=== PATIENT | female | born 1960 | race Caucasian/White ===

== ENCOUNTER 2019-01-16 06:02 | Inpatient (IN) ==
[2019-01-16] MEDS ORDERED: CeFAZolin Syr 2,000MG/20 ML 2,000 MG/20 ML SYRINGE IVPB ONE (06:18)
[2019-01-16] MEDS ORDERED: Albuterol 2.5 MG/3 ML NEBULIZER IH ONE (06:18)
[2019-01-16] MEDS: Ringers Solution, Lactated 1,000 ML IVC SCH ×4 (06:31→17:35)
[2019-01-16] MEDS ORDERED: *HR* Remifentanil 1 MG VIAL IVP ONE (06:47)
[2019-01-16] MEDS ORDERED: *HR* FentaNYL (PF) 100 MCG/2 ML VIAL ONE (06:47)
[2019-01-16] MEDS ORDERED: *HR* Midazolam HCl 2 MG/2 ML VIAL ONE (06:47)
[2019-01-16] MEDS ORDERED: *HR* Propofol 200 MG/20 ML VIAL IVP ONE (06:47)
[2019-01-16] MEDS ORDERED: Ondansetron 4 MG/2 ML VIAL ONE ×2 (06:49→09:53)
[2019-01-16] MEDS ORDERED: Lidocaine -MPF 4% 5 ML AMPUL ONE (06:49)
[2019-01-16] MEDS ORDERED: *HR* Rocuronium Bromide 50 MG/5 ML VIAL ONE (06:49)
[2019-01-16] MEDS ORDERED: Lidocaine -MPF 2% 2 ML VIAL ONE (06:49)
[2019-01-16] MEDS ORDERED: *HR* Atropine Sulfate 8 MG/20 ML VIAL IVP ONE (06:49)
[2019-01-16] MEDS ORDERED: *HR* Succinylcholine 200 MG/10 ML VIAL IVP ONE (06:49)
[2019-01-16] MEDS ORDERED: *HR* Phenylephrine 10 MG/ML VIAL ONE (06:55)
--- NOTE | 2019-01-16 07:19 | Anesthesia Evaluation PreOp ---
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 Other Medical History: GERD Anesthesia History: No Prior Anesthetic Complications, Past Anesthesia Alcohol Use: none Drug use: none Medications and Allergies Allergy/AdvReac Type Severity Reaction Status Date / Time No Known Allergies Allergy Verified 01/06/19 11:25 - Meds/Allergy Pre-op Review Medications Reviewed: Yes Allergies Reviewed: Yes Beta Blockers on Current Med List: No Anesthesia Results - Labs Laboratory Tests 01/06/19 01/06/19 01/06/19 11:45 11:45 11:45 WBC 7.3 Hgb 13.5 Hct 40.9 Plt Count 263 PT 10.6 INR 0.9 APTT 31.3 Sodium 139 Potassium 4.3 BUN 19 Creatinine 0.90 Anesthesia Exam O2 Sat Height 1.65 m Height 1.65 m Weight 65.317 kg Weight 65.317 kg O2 Sat by Pulse Oximetry 93 Vital Signs Temp Pulse Resp BP Pulse Ox 98.6 F 66 18 110/74 93 01/16/19 07:15 01/16/19 07:15 01/16/19 07:15 01/16/19 07:15 01/16/19 07:15 Height: 5'5'' Weight: 144 lbs NPO (# of Hours): 8 Pain Scale: 0 Pain Scale Used: Numeric (1 - 10) - HEENT Pupil (Motor): EOMI Mallampati: II Teeth: Edentulous Oral Opening: Greater than 3 - RAIL CAR MECHANIC LOC: Oriented RAIL CAR MECHANIC Motor: Normal RUE, Normal LUE, Normal RLE, Normal Face, Deficit LLE RAIL CAR MECH[employer]IC Sensory: Normal: RUE, LUE, RLE, Face, Deficit: LLE - Cardiac Rhythm: Regular Murmur: None - Pulmonary Breath Sounds: bilateral Clear Respiratory Effort: Symmetrical ([id number]) Anesthesia Assess/Plan ASA Score: 2 Level of consciousness: Cooperative, Oriented, Tranquil Anesthetic Plan: General Monitoring Plan: Standard Monitors Recovery Plan: PACU
--- NOTE | 2019-01-16 07:32 | History & Physical Report ---
Date of Encounter: 01/16/19 Time of Encounter: 07:31 24 Hour HP Update - Instructions Instructions: If the History and Physical is less than 30 days old and was completed prior to A.M. admission and or procedure and has NOT been updated on calendar day of procedure please complete this update prior to performing procedure. - Update Patient reports changes in Medical Condition: No Changes in examination, assessment, or condition: No Changes in Medication: No Preop tests/diagnostics Reviewed: Yes Pre-Op MRSA Screen: Negative Surgery Remains Indicated: Yes Consent for Planned Operative Procedure(s) Verified: Yes - Pre-Operative Checklist Preoperative Checklist Indicated: No Prophylactic Antibiotic Ordered: Yes Home Medications Include Beta Anibal: No Beta Anibal Taken Today (Day of Surgery): No Beta Anibal Taken Yesterday (Day Prior to Surgery): No Is VTE Prophylaxis Indicated?: Yes
[2019-01-16] MEDS ORDERED: *HR* OxyCODONE Immed Rel 5 MG TABLET PO PRN (07:34)
[2019-01-16] MEDS ORDERED: Acetaminophen IV 1,000 MG/100 ML INFUS..BTL ONE (07:40)
[2019-01-16] MEDS ORDERED: Bacitracin 50,000 UNIT, Polymyxin B Sulfate 500,000 UNIT, Sodium Chloride IRRigation 1,... IR ONE (07:45)
[2019-01-16] MEDS ORDERED: Dexamethasone 4 MG/ML VIAL ONE (08:02)
[2019-01-16] MEDS ORDERED: *HR* HYDROMORPHONE 2 MG/ML VIAL ONE (09:50)
[2019-01-16] MEDS ORDERED: Ketorolac 30 MG/ML VIAL ONE (09:52)
--- NOTE | 2019-01-16 10:23 | Orthopedic Operative Note ---
Date of procedure: 01/16/19 Pre-op diagnosis: Synovial facet cyst, lumbar stenosis, lumbar radiculopathy Post-op diagnosis: same Operation/Findings: Posterior lumbar interbody fusion L5-S1: The patient successfully underwent general endotracheal anesthesia. The patient was given antibiotics prior to the start of the procedure. Compression boots and stockings were used for deep vein thrombosis prophylaxis. A Montgomery catheter was placed. Leads for neuro monitoring were placed on the upper and lower extremities. This included the cranium. The neuro monitoring personnel confirmed there were satisfactory readings prior to the start of the procedure. The patient was turned prone on the Sander table. The back was prepped and draped in the usual sterile fashion. An incision was was marked and centered over the involved L5-S1 levels in the mid line. The incision was deepened through the lumbar fascia. Bovie cautery and Sharma elevators were used to reflect the paraspinal musculature at the lateral extent of the transverse processes of the involved L5 and S1 levels. Trang clamps were placed over the L5 spinous process. An intraoperative lateral fluorograph was obtained. A conversation was held between the surgeon and radiologist and both confirmed we had the correct operative levels. We then placed pedicle screws in standard fashion with the aid of fluoroscopy and anatomic landmarks. Briefly a starter awl was used. A gearshift was subsequently used to enter the pilot boat operator hole via a transpedicular route into the vertebral body. The pilot boat operator hole was tapped with an undersized instrument, and subsequently two 6.5 x 40 mm pedicle screws were placed on the left side at the indicated L5-S1 level. The screws were tested with the aid of the neurologic monitoring staff via pedicle screw stimulation. All readings suggested there was no significant cortical wall breech. The screws were also evaluated fluoro- graphically and appeared to be in satisfactory position. We then turned our attention to the decompression portion of the procedure. We removed the supraspinous and interspinous ligaments and subsequently the insertion of the ligamentum flavum on the undersurface of the proximal L5 lamina was dislodged with a curette. We then removed the ligamentum flavum as well as undercut the L5-S1 facets at this level to decompress the lateral recesses. We also performed a L5 laminectomy. After the decompression, which was over and above that which was required to place the interbody graft, the foramen and traversing roots at this L5-S1 level were found to be free and patent. We also took part of the medial facets in order to aid in the decompression. We then protected the neural elements including the thecal sac and traversing nerve root on the left with a dural retractor. We made an annulotomy into the L5-S1 disc space and then removed entire disc material using Pituitary instruments. We trialed various size grafts after the endplates were prepared for graft insertion. A 10 x 26 enter body graft fit well within the L5-S1 disc space. We obtained some bone from the left posterior superior iliac spine through us a separate incision and combined with this with the bone which we had saved from the laminectomy portion of the procedure. This autograft bone was first placed in the anterior portion of the L5-S1 disc space and additional bone was placed within the interbody graft spacer. We then placed the interbody graft spacer obliquely across the L5-S1 disc space towards the midline while protecting the neural elements with a root retractor. When the graft was found to be in satisfactory position the progressive care unit registered nurse was removed. We then copiously irrigated the wound. We then decorticated the L5 transverse processes as well as the L5-S1 facet joints of the involved levels as well as the proximal portion of the sacrum to aid in the posterolateral fusion. We placed autograft bone in the lateral gutters over these regions. We then placed rods within the screw heads of the involved L5-S1 levels and first locked the distal screws and then subsequently locked the proximal screws. We then closed the wound in layers with 1 Vicryl for the fascia, 2-0 Vicryl. Subcutaneous tissue, and Dermabond was used for skin closure. Sterile dressings were placed over the wound. The patient was turned supine on a hospital bed and extubated. All sponge instruments and needle counts were correct at the end of the procedure. The patient tolerated the procedure well without complications. Anesthesia: GETA Surgeon: Sathya Verduzco Jr Was there an kindergarten assistant present: No Estimated blood loss (cc): 100 Specimen: None Condition: stable Disposition: PACU
[2019-01-16] MEDS: *HR* HYDROmorphone (PF) 1 MG/ML SYRINGE IVP PRN ×2 (10:35→10:40)
--- NOTE | 2019-01-16 10:57 | Anesthesia Evaluation Post Op ---
Date of Encounter: 01/16/19 Time of Encounter: 10:57 - Vital Signs Vital Signs: Vital Signs/O2 Sat, Most Current Temp Pulse Resp BP Pulse Ox 98.0 F 98 12 113/73 93 01/16/19 10:28 01/16/19 10:48 01/16/19 10:48 01/16/19 10:48 01/16/19 10:48 - Lungs Lungs: Clear Ascult./Percussion - Airway Airway: Non-obstructed - Cardiovascular Regular Rate - Mental Status Mental Status: Alert & Oriented, Answers Appropriately - Pain Pain Scale: 5 Pain Scale used: Numeric (1 - 10) - Nausea Vomiting Nausea Vomiting: Not Present - Hydration Hydration: Ice chips, Montgomery catheter - Discharge PostOp Status: Transfer Patient to floor
[2019-01-16] MEDS ORDERED: Naloxone 0.4 MG/ML INJ IVP PRN (11:08)
[2019-01-16] MEDS ORDERED: Ondansetron 4 MG/2 ML VIAL IVP PRN ×2 (11:08→16:39)
[2019-01-16] MEDS: *HR* HYDROcodone/Acet 5/325 mg TABLET PO PRN (13:21)
[2019-01-16] MEDS: *HR* OxyCODONE Immed Rel 5 MG TABLET PO PRN (17:27)
[2019-01-16] MEDS ORDERED: *HR* Promethazine 25 MG/ML VIAL IVP PRN (18:29)
[2019-01-17] MEDS: Ringers Solution, Lactated 1,000 ML IVC SCH ×2 (00:47→04:12)
[2019-01-17] MEDS: *HR* HYDROcodone/Acet 5/325 mg TABLET PO PRN ×3 (03:21→18:39)
[2019-01-17] MEDS: Gabapentin 300 MG CAPSULE PO PRN (04:16)
[2019-01-17] MEDS: *HR* OxyCODONE Immed Rel 5 MG TABLET PO PRN ×4 (07:48→20:42)
--- NOTE | 2019-01-17 09:01 | Orthopedics Progress Note ---
Date of Encounter: 01/17/19 Time of Encounter: 09:00 - Assessment and Plan (1) Synovial cyst of lumbar facet joint Current Visit: Yes Status: Chronic (2) Lumbar stenosis Current Visit: Yes Status: Chronic Qualifiers: Neurogenic claudication status: unspecified Qualified Code(s): M48.061 - Spinal stenosis, lumbar region without neurogenic claudication (3) Lumbar radiculopathy Current Visit: Yes Status: Chronic (4) Status post lumbar spinal fusion Current Visit: Yes Status: Acute Subjective Principal diagnosis: s/p PLIF Interval history: Date of procedure: 01/16/19 Pre-op diagnosis: Synovial facet cyst, lumbar stenosis, lumbar radiculopathy Post-op diagnosis: same Operation/Findings: Posterior lumbar interbody fusion L5-S1: The patient is c/o preop and continued constipation. States leg pain is now intermittent whereas preop it was constant. Afebrile vital signs are stable. Dressing is clean dry and intact. LSO in proper placement. Neurovascularly intact with regard to bilateral lower extremities. Fires all upper and lower extremity motor groups. Assessment :stable. Plan mobilize ,continue analgesics, discharge planning. Add muscle relaxer and miralax Objective Vital signs: Vital Signs Temp Pulse Resp BP Pulse Ox 01/17/19 06:45 98.3 F 68 18 103/66 93 01/17/19 03:50 98.3 F 64 14 113/69 93 01/16/19 23:26 98.6 F 64 14 92/58 93 01/16/19 23:00 93 01/16/19 19:44 98.5 F 75 14 96/60 94 01/16/19 17:25 106/73 01/16/19 14:10 97.6 F 87 17 97/64 98 01/16/19 13:10 97.7 F 73 15 106/73 97 01/16/19 12:10 97.9 F 67 16 107/70 97 01/16/19 11:40 97.0 F L 86 17 110/63 97 01/16/19 11:10 97.6 F 76 16 116/76 97 01/16/19 10:58 98.4 F 84 14 107/70 96 01/16/19 10:48 98 12 113/73 93 01/16/19 10:38 96 14 111/75 96 01/16/19 10:28 98.0 F 89 14 110/75 98 Intake and Output 01/16/19 01/17/19 01/17/19 23:59 07:59 15:59 Intake Total 100 / 100 1100 / 1100 Output Total 425 / 425 1200 / 1200 Balance -325 / -325 -100 / -100 Intake: IV Fluids 1000 / 1000 Lactated Ringers 1,000 ML @ 100 1000 / 1000 mls/hr IVC .Q10H HEATHER Rx#: [id number] Oral 100 / 100 100 / 100 Output: Catheter 425 / 425 1200 / 1200 Other: Weight 73.56 kg Patient Weight 01/17/19 23:59 Weight 73.56 kg Consult Discharge Plan - Plan Referrals: NONE,PCP [Primary Care Provider] -
[2019-01-17] MEDS: Acetaminophen 325 MG TABLET PO PRN (18:26)
[2019-01-18] MEDS: Gabapentin 300 MG CAPSULE PO PRN (01:42)
[2019-01-18] MEDS: Acetaminophen 325 MG TABLET PO PRN (01:42)
[2019-01-18] MEDS: *HR* OxyCODONE Immed Rel 5 MG TABLET PO PRN ×3 (02:59→15:06)
[2019-01-18] MEDS: *HR* HYDROcodone/Acet 5/325 mg TABLET PO PRN ×2 (11:53→18:36)
[2019-01-19] MEDS: *HR* OxyCODONE Immed Rel 5 MG TABLET PO PRN ×3 (02:09→11:09)
[2019-01-19] MEDS: Acetaminophen 325 MG TABLET PO PRN (03:26)
[2019-01-19 11:46] VITALS: BP 107/63
--- NOTE | 2019-01-19 12:46 | Orthopedics Progress Note ---
Date of Encounter: 01/18/19 Time of Encounter: 14:00 - Assessment and Plan (1) Synovial cyst of lumbar facet joint Current Visit: Yes Status: Chronic (2) Lumbar stenosis Current Visit: Yes Status: Chronic Qualifiers: Neurogenic claudication status: unspecified Qualified Code(s): M48.061 - Spinal stenosis, lumbar region without neurogenic claudication (3) Lumbar radiculopathy Current Visit: Yes Status: Chronic (4) Status post lumbar spinal fusion Current Visit: Yes Status: Acute Subjective Principal diagnosis: s/p PLIF Interval history: Date of procedure: 01/16/19 Pre-op diagnosis: Synovial facet cyst, lumbar stenosis, lumbar radiculopathy Post-op diagnosis: same Operation/Findings: Posterior lumbar interbody fusion L5-S1: The patient is c/o preop and continued constipation. States leg pain is now intermittent whereas preop it was constant. Afebrile vital signs are stable. Dressing is clean dry and intact. LSO in proper placement. Neurovascularly intact with regard to bilateral lower extremities. Fires all upper and lower extremity motor groups. Assessment :stable. Plan mobilize ,continue analgesics, discharge planning. Add muscle relaxer and miralax Objective Vital signs: Vital Signs Temp Pulse Resp BP Pulse Ox 01/19/19 10:55 98.5 F 83 16 107/63 95 01/19/19 06:30 98.9 F 86 16 98/53 94 01/19/19 02:21 99.5 F 83 16 96/59 92 01/18/19 22:55 98.6 F 76 16 92/61 93 01/18/19 20:59 99.6 F 93 109/72 92 01/18/19 19:49 100.2 F H 102 16 91/56 91 01/18/19 16:45 98.5 F 79 16 104/68 96 Intake and Output 01/18/19 01/19/19 01/19/19 23:59 07:59 15:59 Output Total 350 / 350 Balance -350 / -350 Output: Urine 350 / 350 Other: # Voids 2 1 Consult Discharge Plan - Plan Referrals: NONE,PCP [Primary Care Provider] -
--- NOTE | 2019-01-19 12:50 | Discharge Summary ---
<Aria Arce - Last Filed: 01/19/19 12:46> Orders not resulted at time of discharge: Pending orders 01/16/19 08:27 XR fluoroscopy <1 hr [XR] Routine Date of Encounter: 01/19/19 - Discharge Diagnosis (1) Synovial cyst of lumbar facet joint Status: Chronic (2) Lumbar stenosis Status: Chronic Qualifiers: Neurogenic claudication status: unspecified Qualified Code(s): M48.061 - Spinal stenosis, lumbar region without neurogenic claudication (3) Lumbar radiculopathy Status: Chronic (4) Status post lumbar spinal fusion Status: Acute - Hospital Course Hospital course: Ms. Cabrera is a 58 year old female Time spent discussing smoking cessation with patient: 3 to 10 minutes (Patient adamantly declines smoking cessation counseling. Strongly encouraged patient to use IS 10x every hour and keep close follow up with her PCP.) - Time Spent with Patient Total time spent providing and/or coordinating discharge services: - Discharge Medications Prescriptions: New RX: OxyCODONE Immed Rel [Roxicodone 5 MG] 5 mg PO Q6HR PRN 7 Days #28 tablet PRN Reason: Severe Pain RX: Docusate Sodium [Colace] 100 mg PO BID 5 Days #10 capsule Continue RX: Gabapentin [Neurontin] 300 mg PO TID PRN PRN Reason: Mild To Moderate Pain Discontinued HYDROcodone/Acet 7.5/325 mg [[place] 7.5-325 mg] 1 tab PO Q6H PRN PRN Reason: Mild To Moderate Pain Home Medications: RX: Gabapentin [Neurontin] 300 mg PO TID PRN 01/16/19 [History] RX: Docusate Sodium [Colace] 100 mg PO BID 5 Days #10 capsule 01/19/19 [Rx] RX: OxyCODONE Immed Rel [Roxicodone 5 MG] 5 mg PO Q6HR PRN 7 Days #28 tablet 01/19/19 [Rx] Allergies/Adverse Reactions: 3 Allergy/AdvReac Type Severity Reaction Status Date / Time No Known Allergies Allergy Verified 01/16/19 07:29 Date of admission: 01/16/19 11:28 Primary care physician: PCP NONE Consults: 01/16/19 11:08 Consult to Physical Therapy [CONS] Routine Comment: Evaluate, develop and implement POC Reason for Consult: Postoperative rehabilitation Does patient have active BEDREST order?: No Is patient medically & hemodynamically stable?: Yes Patient assessed for mobility or mobilized this visit?: No Consult to Spine Navigator [CONS] [CONS] Routine - Impressions ITS Impressions Lumbar Spine X-Ray 01/16/19 08:27 IMPRESSION: Intraoperative radiograph demonstrates successful anterior and posterior fusion with probable decompressive laminectomy at the L5-S1 level. D/ / 01/16/2019 11:21:44 Bipin Elias MD / lgray Interpreting Provider: Bipin Elias MD Lumbar Spine X-Ray 01/19/19 08:23 IMPRESSION: No acute abnormalities. Interval surgical intervention to the lumbosacral junction as above. No evidence for hardware complication. Stable multilevel degenerative changes. Stable grade 1 spondylolisthesis at L3-4 likely relating to the degenerative changes. D/ / 01/19/2019 10:09:22 Cj Landis MD / bcarter Interpreting Provider: Cj Landis MD - Patient Status Disposition: Home Health Service Condition: Good Functional capacity at discharge: uses cane/walker Overall status at discharge: patient is progressing back to baseline - Discharge Instructions Follow Up With: NONE,PCP [Primary Care Provider] - - Diet and Activity Activity: as per physical therapy Diet: advance to your usual diet <Sathya Verduzco Jr - Last Filed: 01/19/19 13:27> - NOTES TO OUTPATIENT PROVIDER Notes to Outpatient Provider: Follow up in 2 weeks in [facility] Orders not resulted at time of discharge: Pending orders 01/16/19 08:27 XR fluoroscopy <1 hr [XR] Routine Date of Encounter: 01/19/19 Time of Encounter: 13:26 - Hospital Course Hospital course: Ms. Cabrera is a 58 year old female The patient had an uneventful postoperative course. Progressed from intravenous analgesic needs to oral analgesic needs only. Remained neurovascularly intact and mobilized satisfactorily. All intrao perative and/or postoperative radiographic studies were satisfactory. Patient is discharged with plan for rehabilitation and follow-up in 2 weeks post discharge on analgesic medication and patient's home medications. - Time Spent with Patient Total time spent providing and/or coordinating discharge services: Date of admission: 01/16/19 11:28 Primary care physician: PCP NONE Consults: 01/16/19 11:08 Consult to Physical Therapy [CONS] Routine Comment: Evaluate, develop and implement POC Reason for Consult: Postoperative rehabilitation Does patient have active BEDREST order?: No Is patient medically & hemodynamically stable?: Yes Patient assessed for mobility or mobilized this visit?: No Consult to Spine Navigator [CONS] [CONS] Routine 01/19/19 13:01 Consult to Adaptive Physical Education Teacher [CONS] Routine Reason for SW Consult: home health for d/c - Impressions ITS Impressions Lumbar Spine X-Ray 01/16/19 08:27 IMPRESSION: Intraoperative radiograph demonstrates successful anterior and posterior fusion with probable decompressive laminectomy at the L5-S1 level. D/ / 01/16/2019 11:21:44 Bipin Elias MD / lgray Interpreting Provider: Bipin Elias MD Lumbar Spine X-Ray 01/19/19 08:23 IMPRESSION: No acute abnormalities. Interval surgical intervention to the lumbosacral junction as above. No evidence for hardware complication. Stable multilevel degenerative changes. Stable grade 1 spondylolisthesis at L3-4 likely relating to the degenerative changes. D/ / 01/19/2019 10:09:22 Cj Landis MD / bcarter Interpreting Provider: Cj Landis MD - Patient Status Functional capacity at discharge: uses cane/walker Overall status at discharge: patient is progressing back to baseline
== END 2019-01-19 13:55 | disposition home health service (06) | DRG 304 ==
LOC: SAMDAY 06:02 → 3NENU 11:28
PROVIDERS: ADMIT Orthopaedic Surgery Orthopaedic Surgery of the Spine; ATTEND Orthopaedic Surgery Orthopaedic Surgery of the Spine